=== PATIENT | female | born 1990 | race Hispanic/Latino ===

== ENCOUNTER 2020-01-19 03:24 | Emergency (ER) | payer OTHER ==
[2020-01-19] MEDS ORDERED: ACETAMINOPHEN 500 MG TAB ONE (03:43)
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
[2020-01-19 04:53] VITALS: TEMP 98.5; O2SAT 100
[2020-01-19 04:55] VITALS: BP 99/78
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
== END 2020-01-19 04:49 | disposition home or self-care (01) ==
LOC: ER 03:24
DX: S06.0X0A Concussion without loss of consciousness, initial encounter (principal); Y08.02XA Assault by strike by baseball bat, initial encounter; Y93.89 Activity, other specified; Y92.89 Other specified places as the place of occurrence of the external cause
CPT/HCPCS: 70450; 99284; G0390

== ENCOUNTER 2023-07-08 21:02 | Emergency (ER) | payer OTHER, SELFPAY ==
--- OUTSIDE RECORDS SUMMARY | 2023-07-08 21:05 | XMS REPORT | Continuity of Care Document ---
Author Name Unknown Address [address] [facility] [place] [address] [facility] Address [address] [facility] [address] [place] [address] Care Team Providers Care Engineering Illustrator Name Role Phone PCP, PATIENT DOES NOT HAVE A Primary Care Physic michael Unavailable MERLY LIPSCOMB Attending Clinician UnavailJUAN Gray Attending Clinician JUAN San Attending Clinician Merly hCopra CNM Attending Clinician [phone] Doctor Unassigned, [place] Attending Clinician U Desiree Menendez CNM Attending Clinician [phone] DESIREE ANDREW Attending Clinician Unavailable ALEXANDRIA RODRIGUEZ Attending Clinician Unavailable ALEXANDRIA RODRIGUEZ Attending Clinician Unavailable Melida Tovar Attending Clinician [phone] MELIDA MARIN Attending Clinician UnavailAbby Diaz Attending Clinician ABBY Vera Attending Clinician Unavailab RAVEN Peres Attending Clinician Unavail able Payers Payer Name Policy Type Policy Number Effective Date Expirati on Date Source [employer] [place] [id number] 2023 00:00:00 Problems Condition Name Condition Details Condition Category Status Onset Date Resolution Date Last Treatment Date Treating Clinician Comments Source Overweight (BMI 25.0-29.9) Overweight (BMI 25.0-29.9) Disease Active 07-01 00:00: 00 [facility] Declines flu vaccine Declines flu vaccine Disease Active 07-01 00:00: 00 [facility] Anemia of mother in , antepartum Anemia of mother in , antepartum Disease Active 06-28 00:00: 00 [facility] Vaginal lesion Vaginal lesion Disease Active 02-16 00:00: 00 [facility] Screening examinatio n for STD (sexually transmitte d disease) Screening examinatio n for STD (sexually transmitte d disease) Disease Active 11-01 00:00: 00 [facility] Obesity (BMI 30-39.9) Obesity (BMI 30-39.9) Disease Active 11-01 00:00: 00 [facility] IUD (intrauter ine device) in place IUD (intrauter ine device) in place Disease Active 11-01 00:00: 00 [facility] BV (bacterial vaginosis) BV (bacterial vaginosis) Disease Active 11-01 00:00: 00 [facility] Dysmenorrh ea Dysmenorrh ea Disease Active 11-01 00:00: 00 [facility] Allergies, Adverse Reactions, Alerts Allergy Name Allergy Type Status Severity Reaction(s) Onset Date Inactive Date Treating Clinician Comments Source NO KNOWN ALLERGIE S Drug Class Active [facility] Social History Social Habit Start Date Stop Date Quantity Comments Source ASSERTION 2023-06-06 00:00:00 [facility] of Social function 2023-06-27 00:00:00 2023-06-27 00:00:00 [facility] Alcohol intake 2023-06-27 00:00:00 2023-06-27 00:00:00 Ex-drinker (finding) [facility] Tobacco use and exposure 2023-04-25 00:00:00 2023-04-25 00:00:00 Smokeless tobacco non-user [facility] Exposure to SARS-CoV-2 (event) 2022-08-29 00:00:00 2022-09-08 16:42:00 Not sure [facility] History SDOH Alcohol Frequency 2020-07-28 00:00:00 2020-07-28 00:00:00 99 [facility] History SDOH Alcohol Std Drinks 2020-07-28 00:00:00 2020-07-28 00:00:00 1 [facility] History SDOH Alcohol Binge 2020-07-28 00:00:00 2020-07-28 00:00:00 99 [facility] Alcohol Comment 2020-07-28 00:00:00 2020-07-28 00:00:00 socially [facility] Sex Assigned At 1990 00:00:00 1990 00:00:00 [facility] Smoking Status Start Date Stop Date Source Never smoked tobacco [facility] Medications Ordered Medication Name Filled Medication Name Start Date Stop Date Current Medication? Ordering Clinician Indication Dosage Frequency Signature (SIG) Comments Components Source Iron Fum & P-FA-Vit B & C No.9 (INTEGRA PLUS) 125 mg iron- 1 mg Cap 06-28 00:00: 00 Yes [id number] 1{capsu le} Take 1 capsule by mouth in the morning. [facility] naproxen sodium (ANAPROX DS) 550 mg tablet 2017-06 00:00: 00 Yes 550mg Take 1 tablet by mouth 2 (two) times daily with meals. [facility] methylPREDN ISolone (MEDROL, HUSSAIN,) 4 mg tablets 2017-06 00:00: 00 Yes Take by mouth SEE-INSTRU CTIONS. follow package directions [facility] naproxen sodium (ANAPROX DS) 550 mg tablet 2017-06 00:00: 00 Yes 550mg Take 1 tablet by mouth 2 (two) times daily with meals. [facility] methylPREDN ISolone (MEDROL, HUSSAIN,) 4 mg tablets 2017-06 00:00: 00 Yes Take by mouth SEE-INSTRU CTIONS. follow package directions [facility] naproxen sodium (ANAPROX DS) 550 mg tablet 2017-06 00:00: 00 09-08 00:00 :00 No 550mg Take 1 tablet by mouth 2 (two) times daily with meals. [facility] methylPREDN ISolone (MEDROL, HUSSAIN,) 4 mg tablets 2017-06 00:00: 00 09-08 00:00 :00 No Take by mouth SEE-INSTRU CTIONS. follow package directions [facility] naproxen sodium (ANAPROX DS) 550 mg tablet 2017-06 00:00: 00 09-08 00:00 :00 No 550mg Take 1 tablet by mouth 2 (two) times daily with meals. [facility] methylPREDN ISolone (MEDROL, HUSSAIN,) 4 mg tablets 2017-06 00:00: 00 09-08 00:00 :00 No Take by mouth SEE-INSTRU CTIONS. follow package directions [facility] metroNIDAZO LE (FLAGYL) 500 mg tablet 11-01 00:00: 00 Yes [id number] 500mg Take 1 tablet by mouth 2 (two) times daily. [facility] metroNIDAZO LE (FLAGYL) 500 mg tablet 11-01 00:00: 00 Yes [id number] 500mg Take 1 tablet by mouth 2 (two) times daily. [facility] metroNIDAZO LE (FLAGYL) 500 mg tablet 11-01 00:00: 00 09-08 00:00 :00 No [id number] 500mg Take 1 tablet by mouth 2 (two) times daily. [facility] metroNIDAZO LE (FLAGYL) 500 mg tablet 11-01 00:00: 00 09-08 00:00 :00 No [id number] 500mg Take 1 tablet by mouth 2 (two) times daily. [facility] Immunizations Ordered Immunization Name Filled Immunization Name Date Status Comments Source MMR 2019-08-11 00:00:00 Completed [facility] TDAP 2019-08-11 00:00:00 Completed [facility] Varicella (varivax)(chicken pox) 2019-08-11 00:00:00 Completed [facility] MMR 2019-08-11 00:00:00 Completed [facility] TDAP 2019-08-11 00:00:00 Completed [facility] Varicella (varivax)(chicken pox) 2019-08-11 00:00:00 Completed [facility] HPV9 2015-11-02 00:00:00 Completed [facility] HPV9 2015-11-02 00:00:00 Completed [facility] HPV9 2015-11-02 00:00:00 Completed [facility] HPV9 2015-11-02 00:00:00 Completed [facility] TD, NOS 2010-06-04 00:00:00 Completed [facility] TD, NOS 2010-06-04 00:00:00 Completed [facility] Td 2010-06-04 00:00:00 Completed [facility] TD, NOS 2010-06-04 00:00:00 Completed [facility] Tetanus/Diptheria 2004-01-08 00:00:00 Completed [facility] Tetanus/Diptheria 2004-01-08 00:00:00 Completed [facility] Hep B, Unspecified Formulation 2001-08-22 00:00:00 Completed [facility] Hep B, Unspecified Formulation 2001-08-22 00:00:00 Completed [facility] Hep B, Unspecified Formulation 2001-04-30 00:00:00 Completed [facility] Hep B, Unspecified Formulation 2001-04-30 00:00:00 Completed [facility] Hep B, Unspecified Formulation 2001-02-08 00:00:00 Completed [facility] MMR 2001-02-08 00:00:00 Completed [facility] Varicella (varivax)(chicken pox) 2001-02-08 00:00:00 Completed [facility] Hep B, Unspecified Formulation 2001-02-08 00:00:00 Completed [facility] MMR 2001-02-08 00:00:00 Completed [facility] Varicella (varivax)(chicken pox) 2001-02-08 00:00:00 Completed [facility] TD, NOS Unknown Completed [facility] HPV9 Unknown Completed [facility] Hep B, Unspecified Formulation Unknown Completed [facility] Hep B, Unspecified Formulation Unknown Completed [facility] Hep B, Unspecified Formulation Unknown Completed [facility] MMR Unknown Completed [facility] MMR Unknown Completed [facility] Tetanus[facility]Diptheria Unknown [facility] Completed [facility] Varicella (varivax)(chicken pox) Unknown Completed [facility] Varicella (varivax)(chicken pox) Unknown Completed [facility] TD, NOS Unknown Completed [facility] HPV9 Unknown Completed [facility] Hep B, Unspecified Formulation Unknown Completed [facility] Hep B, Unspecified Formulation Unknown Completed [facility] Hep B, Unspecified Formulation Unknown Completed [facility] MMR Unknown Completed [facility] MMR Unknown Completed [facility] Tetanus/Diptheria Unknown [facility] Completed [facility] Varicella (varivax)(chicken pox) Unknown Completed [facility] Varicella (varivax)(chicken pox) Unknown Completed [facility] TD, NOS Unknown Completed [facility] HPV9 Unknown Completed [facility] Hep B, Unspecified Formulation Unknown Completed [facility] Hep B, Unspecified Formulation Unknown Completed [facility] Hep B, Unspecified Formulation Unknown Completed [facility] MMR Unknown Completed [facility] MMR Unknown Completed [facility] Tetanus/Diptheria Unknown [facility] Completed [facility] Varicella (varivax)(chicken pox) Unknown Completed [facility] Varicella (varivax)(chicken pox) Unknown Completed [facility] TD, NOS Unknown Completed [facility] HPV9 Unknown Completed [facility] Hep B, Unspecified Formulation Unknown Completed [facility] Hep B, Unspecified Formulation Unknown Completed [facility] Hep B, Unspecified Formulation Unknown Completed [facility] MMR Unknown Completed [facility] MMR Unknown Completed [facility] Tetanus/Diptheria Unknown Com[facility] Unknown Completed [facility] Varicella (varivax)(chicken pox) Unknown Completed [facility] Varicella (varivax)(chicken pox) Unknown Completed [facility] TD, NOS Unknown Completed [facility] HPV9 Unknown Completed [facility] Hep B, Unspecified Formulation Unknown Completed [facility] Hep B, Unspecified Formulation Unknown Completed [facility] Hep B, Unspecified Formulation Unknown Completed [facility] MMR Unknown Completed [facility] MMR Unknown Completed [facility] Tetanus/Diptheria Unknown Com[facility] Unknown Completed [facility] Varicella (varivax)(chicken pox) Unknown Completed [facility] Varicella (varivax)(chicken pox) Unknown Completed [facility] TD, NOS Unknown Completed [facility] HPV9 Unknown Completed [facility] Hep B, Unspecified Formulation Unknown Completed [facility] Hep B, Unspecified Formulation Unknown Completed [facility] Hep B, Unspecified Formulation Unknown Completed [facility] MMR Unknown Completed [facility] MMR Unknown Completed [facility] Tetanus/Diptheria Unknown Com[facility] Unknown Completed [facility] Varicella (varivax)(chicken pox) Unknown Completed [facility] Varicella (varivax)(chicken pox) Unknown Completed [facility] TD, NOS Unknown Completed [facility] HPV9 Unknown Completed [facility] Hep B, Unspecified Formulation Unknown Completed [facility] Hep B, Unspecified Formulation Unknown Completed [facility] Hep B, Unspecified Formulation Unknown Completed [facility] MMR Unknown Completed [facility] MMR Unknown Completed [facility] Tetanus/Diptheria Unknown [facility] Unknown Completed [facility] Varicella (varivax)(chicken pox) Unknown Completed [facility] Varicella (varivax)(chicken pox) Unknown Completed [facility] Vital Signs Vital Name Observation Time Observation Value Comments S ource Systolic blood pressure 2023-06-27 19:41:00 117 mm[Hg] [facility] Diastolic blood pressure 2023-06-27 19:41:00 71 mm[Hg] [facility] Heart rate 2023-06-27 19:41:00 71 /min [facility] Body temperature 2023-06-27 19:41:00 36.44 Pilar [facility] Respiratory rate 2023-06-27 19:41:00 19 /min [facility] Body height 2023-06-27 19:41:00 152.4 cm [facility] Body weight 2023-06-27 19:41:00 64.229 kg [facility] BMI 2023-06-27 19:41:00 27.65 kg/m2 [facility] Systolic blood pressure 2023-04-25 21:44:00 112 mm[Hg] [facility] Diastolic blood pressure 2023-04-25 21:44:00 62 mm[Hg] [facility] Heart rate 2023-04-25 21:44:00 57 /min [facility] Body temperature 2023-04-25 21:44:00 36.72 Pilar [facility] Body height 2023-04-25 21:44:00 152.4 cm [facility] Body weight 2023-04-25 21:44:00 66.18 kg [facility] BMI 2023-04-25 21:44:00 28.49 kg/m2 [facility] Oxygen saturation in Arterial blood by Pulse oximetry 2023-04-25 21:44:00 100 /min [facility] Systolic blood pressure 2022-09-08 21:47:00 117 mm[Hg] [facility] Diastolic blood pressure 2022-09-08 21:47:00 69 mm[Hg] [facility] Heart rate 2022-09-08 21:47:00 68 /min [facility] Body temperature 2022-09-08 21:47:00 37.28 Pilar [facility] Respiratory rate 2022-09-08 21:47:00 20 /min [facility] Body height 2022-09-08 21:47:00 152.4 cm [facility] Body weight 2022-09-08 21:47:00 62.823 kg [facility] BMI 2022-09-08 21:47:00 27.05 kg/m2 [facility] Systolic blood pressure 2022-02-16 18:01:00 99 mm[Hg] [facility] Diastolic blood pressure 2022-02-16 18:01:00 62 mm[Hg] [facility] Heart rate 2022-02-16 18:01:00 61 /min [facility] Body temperature 2022-02-16 18:01:00 36.72 Pilar [facility] Respiratory rate 2022-02-16 18:01:00 20 /min [facility] Body height 2022-02-16 18:01:00 152.4 cm [facility] Body weight 2022-02-16 18:01:00 74.481 kg [facility] BMI 2022-02-16 18:01:00 32.07 kg/m2 [facility] Procedures Procedure Date / Time Performed Performing Clinicia n Source GLUCOSE 1 HOUR POST PRANDIAL 2023-06-27 20:45:00 Merly Lipscomb [facility] CBC WITH DIFF 2023-06-27 20:45:00 Merly Lipscomb [facility] RUBELLA SCREEN IGG 2023-06-27 20:45:00 Chantel Lipscomb [facility] VZV ANTIBODY SCREEN 2023-06-27 20:45:00 Mar Lipscomb [facility] HEPATITIS B SURFACE ANTIGEN 2023-06-27 20:45:00 Merly Lipscomb [facility] HCV ANTIBODY 2023-06-27 20:45:00 [facility] HB ABO GROUPING 2023-06-27 20:45:00 Merly Lipscomb [facility] HIV 1/2 AG-AB WITH REFLEX 2023-06-27 20:45:00 Merly Lipscomb [facility] SYPHILIS IGG/IGM 2023-06-27 20:45:00 Merly Lipscomb [facility] URINE CULTURE 2023-06-27 20:40:00 Merly Lipscomb [facility] GC & CHLAMYDIA AMPLIFIED ASSAY 2023-06-27 20:40:00 Merly Lipscomb [facility] POCT TEST 2023-06-27 19:25:00 Mar Lipscomb [facility] POCT URINALYSIS W/O SPECIFIC GRAVITY 2023-06-27 19:25:00 Merly Lipscomb [facility] ASSIGNMENT OF BENEFITS 2023-06-27 19:16:07 Doceffie r Unassigned, [place] [facility] POCT TEST 2023-04-25 21:49:00 Desiree Andrew [facility] DISCLOSURE AND CONSENT, MEDICAL AND SURGICAL PROCEDURES 2023-04-25 06:01:00 Doctor Unassigned, [place] [facility] Encounters Start Date/Time End Date/Time Encounter Type Admission Type Attending [facility] Care Facility Care Department Encounter ID Source 2023-07-13 14:00:00 2023-07-13 14:00:00 Outpatient R JUAN WOOD SJUAN [facility] [id number] [facility] 2023-06-28 00:00:00 2023-06-28 00:00:00 Telephone Merly Lipscomb [facility] [employer]GET[employer] WORK[employer] [facility] 1.2.840.114 350.1.13.10 4.2.7.2.686 [id number] [facility] 2023-06-27 13:45:00 2023-06-27 14:33:18 Initial Visit Merly Lipscomb [facility] [employer]GET[employer] WORK[employer] [facility] 1.2.840.114 350.1.13.10 4.2.7.2.686 [id number] [facility] 2023-06-27 13:15:00 2023-06-27 13:20:19 Outpatient R MERLY LIPSCOMB [facility] [id number] [facility] 2023-06-27 00:00:00 2023-06-27 00:00:00 Orders Only Doctor Unassigned, [place] [facility] 1.2.840.114 350.1.13.10 4.2.7.2.686 [id number] [facility] 2023-04-25 15:45:00 2023-04-25 16:15:00 Office Visit Desiree Andrew [facility] [employer]GETABLE WORKER [facility] 1.2.840.114 350.1.13.10 4.2.7.2.686 [id number] [facility] 2023-04-25 15:45:00 2023-04-25 15:45:00 Outpatient R DESIREE ANDREW [facility] [id number] [facility] 2023-04-25 00:00:00 2023-04-25 00:00:00 Orders Only Doctor Unassigned, [place] [facility] 1.2.840.114 350.1.13.10 4.2.7.2.686 [id number] [facility] 2022-09-08 16:00:00 2022-09-08 16:56:48 Office Visit Melida Marin [facility] 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 WORKER [facility] MATERNAL & CHILD [facility] 1.2.840.114 350.1.13.10 4.2.7.2.686 [id number] [facility] 2022-09-08 16:00:00 2022-09-08 16:56:48 Outpatient R MELIDA MARIN [facility] [id number] [facility] 2022-08-25 00:00:00 2022-08-25 00:00:00 Telephone Abby Preston [facility] [employer]GET[employer] WORK[employer] [facility] 1.2.840.114 350.1.13.10 4.2.7.2.686 [id number] [facility] 2022-07-18 08:30:00 2022-07-18 08:30:00 Outpatient R MERLY LIPSCOMB [facility] [id number] [facility] 2022-06-20 09:15:00 2022-06-20 09:15:00 [facility] [id number] 2022-02-16 12:45:00 2022-02-16 13:25:17 Outpatient R ABBY PRESTON [facility] [id number] [facility] 2022-02-16 12:45:00 2022-02-16 13:25:17 Office Visit Abby Preston [facility] VEGETABLE WORKER [facility] CHILD [facility] 1..840.114 350.1.13.10 4.2.7.2.686 [id number] [facility] 2022-02-16 00:00:00 2022-02-16 00:00:00 Orders Only Doctor Unassigned, [place] [facility] 1..840.114 350.1.13.10 4.2.7.2.686 [id number] [facility] 2020-07-28 09:00:00 2020-07-28 09:00:00 Outpatient R RAVEN BURDEN [facility] [id number] [facility] Results Test Description Test Time Test Comments Results Result Co mments Source [id number] [facility]:25:00* Test Item Value Reference Range Interpretation Comme nts POCT PREG (test code = 1605) Positive On board controls acceptable with C Line (test code = 3574) Yes POCT PREG LOT # (test code = 3575) POCT PREG TEST DATE ( test code = 3576) [facility] [id number] 21:49:00* Test Item Value Reference Range Interpretation Comme nts POCT PREG (test code = 1605) Negative On board controls acceptable with C Line (test code = 3574) Yes POCT PREG LOT # (test code = 3575) POCT PREG TEST DATE ( test code = 3576) Lab Interpretation (test cod e = 87184-4) Normal [facility] [id number] 21:49:00* Test Item Value Reference Range Interpretation Comme nts POCT PREG (test code = 1605) Negative On board controls acceptable with C Line (test code = 3574) Yes POCT PREG LOT # (test code = 3575) POCT PREG TEST DATE ( test code = 3576) Lab Interpretation (test cod e = 28275-8) Normal [facility] [id number] 21:49:00* Test Item Value Reference Range Interpretation Comme nts POCT PREG (test code = 1605) Negative On board controls acceptable with C Line (test code = 3574) Yes POCT PREG LOT # (test code = 3575) POCT PREG TEST DATE ( test code = 3576) Lab Interpretation (test cod e = 68318-5) Normal [facility] Notes Date/Time Note Provider Source 2023-06-28 08:53:40 4ggiKzoTSdAST33k7Jx/ HuCL7AXrEeHm83A0W3+9D6 aN0qZAoqhQRQ8xRjjCkttG1219-29-23R65:53:40F ormatting of this note might be different from the original.Patient informed of results and new orders, stressed importance of starting supplement now, verbalized understanding. 14494-8Snexponwc encounter TeelPD5063-03-75L26:57:01Telephone encounter NoteTXT1.2.840.903893.1.13.104.2.7.2.69510 9|[id number] for patient dsri34941-8KnflTABNMCZHXPAIsnnwgmnt C-CDA narrative textUTMBUTMB - Vtavwe622 [employer] QchxLdtjtwghlZkhkvdycuFUCA5944884460ONVRIJ NPRADIERISYKXBOH7379-16-23F22:57:011.2.840 .056067.1.72.3.15|1.2.840.832300.1.13.104. 2.7.2.727879_[id number] [facility] 2023-06-28 08:45:13 f5u2lpBUrKNC0FvPsFjl /db+hJH0uhGzXDMv5PgJve BkNNe5qTPjMCMjUUrVsSPV3193-39-97J05:45:13F ormatting of this note might be different from the original.Attempted to call patient, no answer, [place]. 44[address]-4Roauthmqq encounter TxfbAB0596-41-24I40:45:34Telephone encounter NoteTXT1.2.840.734807.1.13.104.2.7.2.40861 9|[id number] for patient sytj73246-7NeqvCCUAODFLZJLKlsyzzppr C-CDA narrative [id number] IEJHXNXYCMLKBVCY8953-35-06H43:45:341.2.840 .880045.1.72.3.15|1.2.840.326627.1.13.104. 2.7.2.727879_[id number] [facility] 2023-06-28 08:34:24 hDIWilvELuSnPte0Dsfp hGtNiEiRdrXpCh6q/9Ty46 sNNpws+hLbIRipQivVE3Ik7095-14-11D42:34:24F ormatting of this note might be different from the original.Please call patient and let her know she has anemia and sent prescription to the pharmacy. She can take OTC until she has medicaid. Please stress importance of taking iron supplement and increasing iron rich foods since its low and only the beginning of . As progresses it will get lower with possible need of iron transfusion if not treated now. [id number] encounter [id number] encounter [id number] for patient [id number] C-CDA narrative [address] [id number] .[id number]. [id number] [facility]"
[2023-07-08 21:48] LABS: Absolute Basophils 0.1 K/uL (0-0.5); Absolute Eosinophils 0.1 K/uL (0-0.5); Absolute Monocytes 0.3 K/uL (0.1-1.3); Absolute Neutrophil 5.2 K/uL (1.8-8.0); Basophils % 0.6 % (0-1.3); Eosinophils % 1.7 % (0-4.4); Hematocrit 31.1 % (36.0-45.0); Hemoglobin 9.7 g/dL (12.0-15.0); Lymphocytes % 34.6 % (15.3-44.8); MCH 21.5 pg (27.0-35.0); MCHC 31.1 g/dL (32.0-36.0); MCV 69.1 fL (80-100); MPV 7.5 fL (7.6-11.3); Monocytes % 3.5 % (3.3-12.3); Neutrophils % 59.6 % (41.7-73.7); Nucleated Red Blood Cells % 0.1 % (0-0); Platelets 415 thou/uL (152-406); Red Cell Distribution Width 19.1 % (12.1-15.2)
[2023-07-08 22:13] LABS: Anion Gap 7.4 mEq/L (5.0-15.0); Bilirubin Total 0.2 mg/dL (0.2-1.0); Potassium 3.4 mEq/L (3.5-5.1)
--- NOTE | 2023-07-08 22:30 | RAD REPORT ---
EXAM DESCRIPTION: US - TRANSVAG OB - 07/08/2023 10:14 pm CLINICAL HISTORY: with abdominal pain COMPARISON: None FINDINGS: The uterus measures 10 x 6 x 8 centimeters. A gestational sac is present within the endom etrium. Within this is a pole with a crown-rump length 7 mm.. Cardiac activity 118 beats per mi nute. The ovaries are normal in size echotexture. A 2 centimeter right ovarian cyst. No follow-up imaging r ecommended Right and left adnexa unremarkable. No significant free fluid IMPRESSION: Single live intrauterine with an estimated gestational age 6 weeks 3 days GLO 02/28/2024
[2023-07-08 23:09] LABS: Blood Morphology Comment NOTED (NOT SEEN); Hypochromasia 2+; Microcytosis 1+; Platelet Estimate ADEQ; White Blood Cell Scan OK (OK)
--- NOTE | 2023-07-09 00:23 | ER ---
Nurse's Notes [facility] Name: Marco Goins Age: 33 yrs Sex: Female : 1990 Arrival Date: 07/08/2023 Time: 21:02 Bed 13 Private MD: Diagnosis: Threatened ; related conditions, unspecified, first trimester;Vaginal bleeding in , first trimester Presentation: 07/08 21:11 Chief complaint: Patient states: "I'm 7 wks and started spotting and having mb9 cramping a few hours ago. It's bright red and a tiny clot.". Coronavirus screen: Vaccine status: Patient reports being unvaccinated. Ebola Screen: No symptoms or risks identified at this time. Initial Sepsis Screen: Does the patient meet any 2 criteria? No. Patient's initial sepsis screen is negative. Does the patient have a suspected source of infection? No. Patient's initial sepsis screen is negative. Risk Assessment: Do you want to hurt yourself or someone else? Patient reports no desire to harm self or others. Onset of symptoms was July 08, 2023. 21:11 Method Of Arrival: Ambulatory mb9 21:11 Acuity: CHELSEY 3 mb9 Triage Assessment: 21:12 General: Appears in no apparent distress. Behavior is calm, cooperative. Pain: mb9 Complains of pain in abdomen. EENT: No signs and/or symptoms were reported regarding the EENT system. Neuro: White Agitation-Sedation Scale (RASS): 0 - Alert and Calm Level of Consciousness is awake, alert, obeys commands, Oriented to person, place, time, situation, Appropriate for age. Cardiovascular: Patient's skin is warm and dry. Respiratory: Airway is patent. GI: Reports cramping, Patient currently denies pain. : Reports vaginal bleeding that is spotty. Derm: Skin is pink, warm \\T\\ dry. Historical: - Allergies: 21:12 No Known Allergies; mb9 - Home Meds: 21:12 None [Active]; mb9 - PMHx: 21:12 None; mb9 - PSHx: 21:12 None; mb9 - Immunization history:: Adult Immunizations up to date. - Social history:: Smoking status: Patient denies any tobacco usage or history of. - Family history:: not pertinent. Screenin:35 [facility] ED Fall Risk Assessment (Adult) History of falling in the last 3 months, mb9 including since admission No falls in past 3 months (0 pts) Confusion or Disorientation No (0 pts) Intoxicated or Sedated No (0 pts) Impaired Gait No (0 pts) Mobility Assist Device Used No (0 pt) Altered Elimination No (0 pt) Score/Fall Risk Level 0 - 2 = Low Risk Oriented to surroundings, Maintained a safe environment, Educated pt \\T\\ family on fall prevention, incl call for assistance when getting out of bed. Abuse screen: Denies threats or abuse. Nutritional screening: No deficits noted. Tuberculosis screening: No symptoms or risk factors identified. Assessment: 21:58 General: Appears in no apparent distress. Behavior is calm, cooperative. Pain: rv Complains of pain in abdomen. Neuro: Level of Consciousness is awake, alert, obeys commands, Oriented to person, place, time, situation. Cardiovascular: Capillary refill < 3 seconds Patient's skin is warm and dry. Respiratory: Airway is patent Respiratory effort is even, unlabored. GI: Bowel sounds present X 4 quads. Abd is soft and non tender X 4 quads. Derm: Skin is intact. Vital Signs: 21:11 BP 111 / 65; Pulse 60; Resp 18; Temp 98.9; Pulse Ox 100% ; Weight 65.77 kg; Height 5 mb9 ft. 0 in. ; Pain 0/10; 23:59 BP 97 / 63; Pulse 69; Resp 18; Temp 98; Pulse Ox 99% ; rv 07/09 00:27 BP 98 / 78; Pulse 69; Resp 16; Temp 98; Pulse Ox 99% on R/A; rv 07/08 21:11 Body Mass Index 28.32 (65.77 kg, 152.4 cm) mb9 07/08 21:11 Pain Scale: Adult mb9 Karson Coma Score: 07/08 21:58 Eye Response: spontaneous(4). Motor Response: obeys commands(6). Verbal Response: rv oriented(5). Total: 15. ED Course: 21:06 Patient arrived in ED. gm2 21:08 New Lehman MD is Attending Physician. sp4 21:12 Triage completed. mb9 21:12 Arm band placed on. mb9 21:29 Inserted saline lock: 20 gauge in right antecubital area, using aseptic technique. ty Blood collected. 21:35 Placed in gown. Bed in low position. Call light in reach. Side rails up X 1. Client mb9 placed on continuous cardiac and pulse oximetry monitoring. NIBP monitoring applied. 21:36 No provider procedures requiring assistance completed. mb9 22:15 TRANSVAG OB In Process Unspecified. EDMS 23:43 Mauro Crowder, RN is Primary Nurse. rv 07/09 00:28 IV discontinued, intact, bleeding controlled, No redness/swelling at site. Pressure rv dressing applied. Administered Medications: No medications were administered Medication: 07/08 21:36 VIS not applicable for this client. mb9 Outcome: 07/09 00:22 Discharge ordered by . idalmis 00:28 Discharged to home ambulatory, rv 00:28 Condition: good 00:28 Discharge instructions given to patient, Instructed on discharge instructions, follow up and referral plans. Demonstrated understanding of instructions, follow-up care, 00:28 Patient left the ED. rv Signatures: Dispatcher [employer] EDMO Mauro Crowder, RN RN rv Prachi Saldana RN RN mb9 New Lehman MD MD sp4 Connie New Tylor ty
--- NOTE | 2023-07-09 00:23 | EDPHYS ---
Physician Documentation [facility] Name: Marco Goins Age: 33 yrs Sex: Female : 1990 Arrival Date: 07/08/2023 Time: 21:02 Bed 13 Private MD: ED Physician New Lehman HPI: 07/08 21:09 This 33 yrs old Female presents to ER via Unassigned with complaints of sp4 complaint . 07/09 00:14 Patient is 33-year-old female -0-0-2 EGA by LMP 6 weeks 5 days, LMP 05/23/2023. sp4 Patient states that she developed mild pelvic cramping and mild to moderate bleeding starting 8 PM today. No prior miscarriages. . Historical: - Allergies: 07/08 21:12 No Known Allergies; mb9 - Home Meds: 21:12 None [Active]; mb9 - PMHx: 21:12 None; mb9 - PSHx: 21:12 None; mb9 - Immunization history:: Adult Immunizations up to date. - Social history:: Smoking status: Patient denies any tobacco usage or history of. - Family history:: not pertinent. ROS: 07/09 00:14 Constitutional: Negative for fever, chills, and weight loss, positive vaginal bleeding sp4 and pelvic cramps. All other systems are negative, Exam: 00:14 Constitutional: This is a well developed, well nourished patient who is awake, alert, sp4 and in no acute distress. Head/Face: Normocephalic, atraumatic. Eyes: Pupils equal round and reactive to light, extra-ocular motions intact. Lids and lashes normal. Conjunctiva and sclera are not injected. Cornea within normal limits. Periorbital areas with no swelling, redness, or edema. ENT: Nares patent. No nasal discharge, no septal abnormalities noted. Tympanic membranes are normal and external auditory canals are clear. Oropharynx with no redness, swelling, or masses, exudates, or evidence of obstruction, uvula midline. Mucous membranes moist. Neck: Trachea midline, no thyromegaly or masses palpated, and no cervical lymphadenopathy. Supple, full range of motion without nuchal rigidity, or vertebral point tenderness. Chest/axilla: Normal chest wall appearance and motion. Nontender with no deformity. No lesions are appreciated. Cardiovascular: Regular rate and rhythm with a normal S1 and S2. No gallops, murmurs, or rubs. Normal PMI, no JVD. No pulse deficits. Respiratory: Lungs have equal breath sounds bilaterally, clear to auscultation and percussion. No rales, rhonchi or wheezes noted. No increased work of breathing, no retractions or nasal flaring. Abdomen/GI: Soft, non-tender, with normal bowel sounds. No distension or tympany. No guarding or rebound. No evidence of tenderness throughout. Back: No spinal tenderness. No costovertebral tenderness. Skin: Warm, dry with normal turgor. Normal color with no rashes, no lesions, and no evidence of cellulitis. MS/ Extremity: Pulses equal, no cyanosis. Neurovascular intact. Full, normal range of motion. Neuro: Awake and alert, GCS 15, oriented to person, place, time, and situation. Cranial nerves II-XII grossly intact. Motor strength 5/5 in all extremities. Sensory grossly intact. Psych: Awake, alert, with orientation to person, place and time. Behavior, mood, and affect are within normal limits Vital Signs: 07/08 21:11 BP 111 / 65; Pulse 60; Resp 18; Temp 98.9; Pulse Ox 100% ; Weight 65.77 kg; Height 5 mb9 ft. 0 in. ; Pain 0/10; 23:59 BP 97 / 63; Pulse 69; Resp 18; Temp 98; Pulse Ox 99% ; rv 07/09 00:27 BP 98 / 78; Pulse 69; Resp 16; Temp 98; Pulse Ox 99% on R/A; rv 07/08 21:11 Body Mass Index 28.32 (65.77 kg, 152.4 cm) mb9 07/08 21:11 Pain Scale: Adult mb9 Karson Coma Score: 07/08 21:58 Eye Response: spontaneous(4). Motor Response: obeys commands(6). Verbal Response: rv oriented(5). Total: 15. MDM: 21:18 Patient medically screened. sp4 07/09 00:18 ED course: EXAM DESCRIPTION: US - TRANSVAG OB - 07/08/2023 10:14 pm CLINICAL HISTORY: sp4 with abdominal pain COMPARISON: None FINDINGS: The uterus measures 10 x 6 x 8 centimeters. A gestational sac is present within the endometrium. Within this is a pole with a crown-rump length 7 mm.. Cardiac activity 118 beats per minute. The ovaries are normal in size echotexture. A 2 centimeter right ovarian cyst. No follow-up imaging recommended Right and left adnexa unremarkable. No significant free fluid IMPRESSION: Single live intrauterine with an estimated gestational age 6 weeks 3 days GLO 02/28/2024 . 00:18 Differential Diagnosis altered mental status, sepsis, flu, Miscarriage . Data reviewed: sp4 vital signs, nurses notes, old medical records, lab test result(s), radiologic studies, ultrasound. ED course: ABO Rh -O - positive-. ED course: Ultrasound reveals early intrauterine gestation at 6 weeks 3 days with cardiac activity 118 beats per minute. Blood type O+, patient advised to recheck her beta-hCG level in 2 days at her [employer] office in [place]. Pelvic rest advised for 2-weeks . 07/08 21:17 Order name: CBC with Diff; Complete Time: 00:09 sp4 07/08 21:17 Order name: CMP; Complete Time: 00:09 sp4 07/08 21:17 Order name: Abo/rh Typing; Complete Time: 04:30 sp4 07/08 21:17 Order name: HCG-Quantitative; Complete Time: 00:09 sp4 07/08 22:32 Order name: CBC Smear Scan; Complete Time: 00:09 EDMS 07/08 21:38 Order name: TRANSVAG OB; Complete Time: 00:09 EDMS 07/08 21:17 Order name: IV Saline Lock; Complete Time: 21:30 sp4 07/08 21:17 Order name: Labs collected and sent; Complete Time: 21:30 sp4 Administered Medications: No medications were administered Disposition Summary: 07/09/23 00:22 Discharge Ordered Notes: Please see your MAKEUP EDITOR in 2 days for repeat HCG level Location: Home sp4 Problem: new sp4 Symptoms: have improved sp4 Condition: Stable sp4 Diagnosis - Threatened sp4 - related conditions, unspecified, first trimester sp4 - Vaginal bleeding in , first trimester sp4 Followup: sp4 - With: Private Physician - When: 1 - 2 days - Reason: Recheck today's complaints Discharge Instructions: - Discharge Summary Sheet sp4 - Threatened Miscarriage sp4 Forms: - Patient Portal Instructions sp4 Signatures: Dispatcher [employer] Prachi Perez RN RN mb9 New Lehman MD MD sp4 Corrections: (The following items were deleted from the chart) 07/08 21:38 21:18 OB Limited+US.RAD.BRZ ordered. EDMS EDMS
[2023-07-09 06:43] VITALS: BP 98/78; TEMP 98; O2SAT 99
== END 2023-07-09 00:28 | disposition home or self-care (01) ==
LOC: ER 21:02
DX: O20.0 Threatened abortion (principal); Z3A.01 Less than 8 weeks gestation of pregnancy
CPT/HCPCS: 36415; 76813; 80053; 84702; 85025; 86900; 86901; 99284